=== PATIENT | female | born 1960 | race Caucasian/White ===

== ENCOUNTER 2022-08-13 14:55 | Observation (INO) ==
[2022-08-13] MEDS ORDERED: ROCEPHIN VIAL 1 GRAM 1 G in NS 100 ML IV + SPIKE MINIBAG* 100 ML IV SCH (17:02)
[2022-08-13] MEDS ORDERED: TORADOL 30 MG VIAL IVP PRN (17:02)
[2022-08-13 17:07] VITALS: BMI 26.4
[2022-08-13] MEDS: NS 1,000 ML IV 1,000 ML IV SCH (17:59)
[2022-08-13] MEDS: ROCEPHIN VIAL 1 GRAM 1 G in NS 100 ML IV 100 ML IV SCH (18:00)
[2022-08-13 18:07] LABS: BASOPHILS % (AUTO) 0.4 % (0.2-1.0); EOSINOPHILS % (AUTO) 0.2 % (0.9-2.9); LYMPHOCYTES # (AUTO) 0.2 X10^3/uL (1.3-2.9); MEAN CORPUSCULAR HEMOGLOBIN 31.9 pg (27.0-34.0); MEAN CORPUSCULAR HGB CONC 35.4 g/dL (33.0-35.0); MEAN CORPUSCULAR VOLUME 90.1 fL (80.0-100.0); MEAN PLATELET VOLUME 7.3 fL (7.4-11.0); MONOCYTES # (AUTO) 0.3 x10^3/uL (0.3-0.8); MONOCYTES % (AUTO) 5.6 % (0.0-13.0); NEUTROPHILS # (AUTO) 5.7 x10^3/uL (2.2-4.8); NEUTROPHILS % (AUTO) 90.8 % (42.0-75.0); PLATELET COUNT 31 X10^3/uL (150.0-450.0); RED BLOOD COUNT 3.44 X10^6/uL (3.5-5.4); RED CELL DISTRIBUTION WIDTH 13.2 % (11.6-16.5); WHITE BLOOD COUNT 6.2 X10^3/uL (3.6-10.0)
[2022-08-13 18:18] LABS: ALANINE AMINOTRANSFERASE 40 Units/L (12-78); ALBUMIN 3.3 g/dL (3.4-5.0); ALKALINE PHOSPHATASE 69 Units/L (46-116); AMYLASE 58 Units/L (25-115); ASPARTATE AMINO TRANSFERASE 35 Units/L (15-37); BLOOD UREA NITROGEN 20 mg/dL (7-18); CALCIUM 7.9 mg/dL (8.5-10.1); CARBON DIOXIDE 24.6 mmol/L (21-32); CHLORIDE 104 mmol/L (98-107); COR CA(FOR HYPOALB) 8.5 mg/dL (8.5-10.1); COR NA(FOR HYPERGLY) 138 mmol/L (136-145); CREATININE 1.08 mg/dL (0.55-1.02); GLUCOSE 117 mg/dL (65-99); SODIUM 138 mmol/L (136-145); TOTAL PROTEIN 5.8 g/dL (6.4-8.2); eGFR NON BLACK RACES 55 (>60)
[2022-08-13 19:01] LABS: BAND NEUTROPHILS % 3 % (0-10); PLATELET MORPHOLOGY COMMENT NORMAL (NORMAL)
[2022-08-13] MEDS: ZOFRAN INJ 4 MG VIAL IVP PRN (19:49)
[2022-08-13 20:43] LABS: APPEARANCE,URINE CLOUDY (CLEAR); BLOOD/HEMOGLOBIN,URINE 3+ (NEGATIVE); COLOR,URINE YELLOW (YELLOW); GLUCOSE, URINE NEGATIVE (NEGATIVE); KETONES,URINE NEGATIVE (NEGATIVE); PROTEIN,URINE NEGATIVE (NEGATIVE)
[2022-08-13 20:44] LABS: BILIRUBIN,URINE NEGATIVE (NEGATIVE); LEUKOCYTE ESTERASE ,URINE 2+ (NEGATIVE); NITRITES,URINE POSITIVE (NEGATIVE); UROBILINOGEN,URINE NORMAL (NORMAL)
[2022-08-13 20:45] LABS: BACTERIA,URINE 3+ /HPF (NEGATIVE); RBC,URINE 0-2 /HPF (0-3); SQUAMOUS EPITHELIAL CELL,UR RARE /HPF (NEGATIVE)
[2022-08-14] MEDS: NS 1,000 ML IV 1,000 ML IV SCH ×4 (02:38→21:12)
[2022-08-14 06:49] LABS: BASOPHILS % (AUTO) 0.3 % (0.2-1.0); EOSINOPHILS % (AUTO) 0.5 % (0.9-2.9); HEMATOCRIT 25.5 % (36.0-47.0); HEMOGLOBIN 8.9 g/dL (12.0-16.0); LYMPHOCYTES # (AUTO) 0.2 X10^3/uL (1.3-2.9); LYMPHOCYTES % (AUTO) 7.1 % (21.0-51.0); MEAN CORPUSCULAR HEMOGLOBIN 31.6 pg (27.0-34.0); MEAN CORPUSCULAR HGB CONC 34.9 g/dL (33.0-35.0); MEAN CORPUSCULAR VOLUME 90.6 fL (80.0-100.0); MONOCYTES # (AUTO) 0.2 x10^3/uL (0.3-0.8); MONOCYTES % (AUTO) 8.3 % (0.0-13.0); NEUTROPHILS # (AUTO) 2.4 x10^3/uL (2.2-4.8); NEUTROPHILS % (AUTO) 83.8 % (42.0-75.0); PLATELET COUNT 23 X10^3/uL (150.0-450.0); RED BLOOD COUNT 2.82 X10^6/uL (3.5-5.4); RED CELL DISTRIBUTION WIDTH 13.4 % (11.6-16.5); WHITE BLOOD COUNT 2.9 X10^3/uL (3.6-10.0)
[2022-08-14 06:52] LABS: ALANINE AMINOTRANSFERASE 31 Units/L (12-78); ALBUMIN 2.7 g/dL (3.4-5.0); ALKALINE PHOSPHATASE 58 Units/L (46-116); ASPARTATE AMINO TRANSFERASE 26 Units/L (15-37); BLOOD UREA NITROGEN 19 mg/dL (7-18); CALCIUM 7.3 mg/dL (8.5-10.1); CARBON DIOXIDE 25.2 mmol/L (21-32); CHLORIDE 105 mmol/L (98-107); COR CA(FOR HYPOALB) 8.3 mg/dL (8.5-10.1); CREATININE 0.99 mg/dL (0.55-1.02); GLUCOSE 108 mg/dL (65-99); POTASSIUM 3.6 mmol/L (3.5-5.1); SODIUM 137 mmol/L (136-145); eGFR NON BLACK RACES > 60 (>60)
[2022-08-14 07:46] LABS: BAND NEUTROPHILS % 15 % (0-10); PLATELET MORPHOLOGY COMMENT NORMAL (NORMAL)
[2022-08-14] MEDS: CLARITIN PO SCH (09:57)
[2022-08-14] MEDS: PriLOSEC PO SCH (09:57)
[2022-08-14] MEDS: ZOFRAN INJ 4 MG VIAL IVP PRN (12:57)
--- NOTE | 2022-08-14 13:43 | DR.UPDATE ---
H&P Update Prescription drug monitoring program results: PDMP was not reviewed H&P Reviewed: Yes Any changes to H&P?: Yes Changes noted:: MS. LAZO IS A 61 YEAR OLD PATIENT OF OURS. SHE HAS A PMH OF: HTN, GERD, FATTY LIVER CIRRHOSIS, UTIs, KIDNEY STONES, ENDOMETRIOSIS, LISA ENDECTOMY, CHOLECYSTECTOMY, HYSTERECTOMY, TUBAL LIGATION. WAS ADMITTED TO THE HOSPITAL OBSERVATION STATUS FOR FURTHER EVALUATION AND TREATMENT OF PYELONEPHRITIS, RIGHT FLANK PAIN, FEVER, NAUSEA, HYPOTENSION. ON ADMISSION, HER VITALS WERE: 99.2-99-20-98%-109/54. LABS WERE OBTAINED. WBC 6.2, RBC 3.44, HGB 11.0, HCT 31.0, PLT COUNT 31, SODIUM 138, POTASSIUM 4.0, CHLORIDE 104, CARBON DIOXIDE 24.6, BUN 20, CREATININE 1.08, GLUCOSE 117, CALCIUM 7.9, TOTAL BILI 2.20, AST 35, ALT 40, ALK PHOS 69, TOTAL PROTEIN 5.8, ALBUMIN 3.3. URINALYSIS WAS OBTAINED AND REVEALED: WBC 10-20, RBC 0-2, LEUKOCYTES 2+, BACTERIA 3+, NITRITE POSITIVE. BLOOD AND URINE CULTURES WERE SET UP. SHE WAS STARTED ON NORMAL SALINE AT 125 ML/HR, ROCEPHIN 1G IV DAILY, TORADOL 30MG IV Q8H PRN, AND HER HOME MEDICATIONS OF CLARITIN, MELATONIN, AND PRILOSEC WERE RESUMED. WE WILL OBTAIN AN ABDOMEN/PELVIS CT WITHOUT CONTRAST. OTHERWISE, WE WILL FOLLOW-UP WITH AM LABS AND CONTINUE TO MONITOR. TIME SPENT ON CLINICAL ASSESSMENT, REVIEWING LABS AND IMAGING, DECISION MAKING, AND DOCUMENTATION GREATER THAN 75 MINUTES. Patient was examined?: Yes
[2022-08-14] MEDS: MOTRIN TAB 800 MG PO PRN (15:59)
[2022-08-14] MEDS ORDERED: TYLENOL 325 MG TAB PO PRN (16:00)
--- NOTE | 2022-08-14 16:03 | CT ---
HISTORYRT FLANK PAIN, HX OF KIDNEY STONESSTUDYABDOMEN/PELVIS W/O CONCOMPARISONNoneTECHNIQUECT of the abdomen and pelvis obtained without IV contrast. Study limited due to lack of IV contrast. Dose reduction techniques including Automated Exposure Control (AEC) and adjustment of mA and kV were utilized.FINDINGSTrace right-sided effusion. Small hiatal hernia.No acute osseous abnormality. Likely hemangioma in the T11 vertebral body.The liver, pancreas, bilateral adrenal glands, and left kidney demonstrate no acute process given lack of IV contrast. Prior cholecystectomy. Marked splenomegaly measuring at least 20.2 cm. Punctate nonobstructing bilateral nephrolithiasis. Obstructing 1.2 cm proximal right ureteral stone with moderate right hydronephrosis.No evidence of bowel obstruction. The appendix is surgically absent.The bladder is unremarkable. Prior hysterectomy. No free air or fluid. Nonaneurysmal aorta.IMPRESSIONObstructing 1.2 cm proximal right ureteral stone with moderate right hydronephrosis. Additional punctate nonobstructing bilateral nephrolithiasis.Marked splenomegaly.Electronically signed by: SIERRA WILSON (Aug 14, 2022 16:02:42)
[2022-08-14] MEDS: ROCEPHIN VIAL 1 GRAM 1 G in NS 100 ML IV 100 ML IV SCH (17:53)
[2022-08-14] MEDS ORDERED: MELATONIN PO PRN (21:00)
[2022-08-15] MEDS: NS 1,000 ML IV 1,000 ML IV SCH ×3 (01:46→08:28)
[2022-08-15] MEDS: MOTRIN TAB 800 MG PO PRN (02:30)
[2022-08-15 07:26] LABS: BASOPHILS % (AUTO) 0.3 % (0.2-1.0); EOSINOPHILS % (AUTO) 1.4 % (0.9-2.9); HEMATOCRIT 24.6 % (36.0-47.0); HEMOGLOBIN 8.6 g/dL (12.0-16.0); LYMPHOCYTES # (AUTO) 0.1 X10^3/uL (1.3-2.9); LYMPHOCYTES % (AUTO) 13.7 % (21.0-51.0); MEAN CORPUSCULAR HEMOGLOBIN 31.7 pg (27.0-34.0); MEAN CORPUSCULAR HGB CONC 35.2 g/dL (33.0-35.0); MEAN CORPUSCULAR VOLUME 90.1 fL (80.0-100.0); MEAN PLATELET VOLUME 7.7 fL (7.4-11.0); MONOCYTES # (AUTO) 0.1 x10^3/uL (0.3-0.8); MONOCYTES % (AUTO) 11.4 % (0.0-13.0); NEUTROPHILS # (AUTO) 0.8 x10^3/uL (2.2-4.8); NEUTROPHILS % (AUTO) 73.2 % (42.0-75.0); RED BLOOD COUNT 2.73 X10^6/uL (3.5-5.4); RED CELL DISTRIBUTION WIDTH 13.6 % (11.6-16.5)
[2022-08-15 07:30] LABS: WHITE BLOOD COUNT 1.1 X10^3/uL (3.6-10.0)
[2022-08-15 07:40] LABS: ALANINE AMINOTRANSFERASE 27 Units/L (12-78); ALBUMIN 2.6 g/dL (3.4-5.0); ALKALINE PHOSPHATASE 55 Units/L (46-116); ASPARTATE AMINO TRANSFERASE 17 Units/L (15-37); BLOOD UREA NITROGEN 12 mg/dL (7-18); CALCIUM 7.4 mg/dL (8.5-10.1); CARBON DIOXIDE 23.9 mmol/L (21-32); CHLORIDE 111 mmol/L (98-107); COR CA(FOR HYPOALB) 8.5 mg/dL (8.5-10.1); CREATININE 0.81 mg/dL (0.55-1.02); GLUCOSE 107 mg/dL (65-99); POTASSIUM 3.9 mmol/L (3.5-5.1); SODIUM 143 mmol/L (136-145); TOTAL PROTEIN 5.1 g/dL (6.4-8.2); eGFR NON BLACK RACES > 60 (>60)
[2022-08-15] MEDS: PriLOSEC PO SCH (08:28)
[2022-08-15] MEDS: CLARITIN PO SCH (08:28)
[2022-08-15 13:35] VITALS: BP 130/59; PULSE 80; TEMP 98.3; O2SAT 99
[2022-08-16 13:46] LABS: PLATELET COUNT 19 X10^3/uL (150.0-450.0)
== END 2022-08-15 16:00 | disposition short-term general hospital (02) ==
LOC: MED/SURG
PROVIDERS: ADMIT Internal Medicine; ATTEND Internal Medicine
DX: K76.0 Fatty (change of) liver, not elsewhere classified; I95.89 Other hypotension; R10.84 Generalized abdominal pain; Z87.440 Personal history of urinary (tract) infections; I10 Essential (primary) hypertension; K21.9 Gastro-esophageal reflux disease without esophagitis; N13.6 Pyonephrosis; B96.29 Other Escherichia coli [E. coli] as the cause of diseases classified elsewhere; E78.5 Hyperlipidemia, unspecified